=== PATIENT | male | born 1960 | race Caucasian/White ===

== ENCOUNTER 2019-02-28 10:57 | Emergency (ER) | payer OTHER, SELFPAY ==
[2019-02-28 11:01] VITALS: BP 155/95; PULSE 77; RESP 16; TEMP 36.8; O2SAT 97; BMI 37.1
--- NOTE | 2019-02-28 11:20 | ED.VISSUMM ---
- ER Visit Summary Date of Service: 02/28/19 Chief Complaint: Fell about 5 feet at work with a right knee injury History of Present Illness: The patient is a 59 M past medical history of ADD and depression. No prior extremity surgeries. 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 Now he is unable to extend his right lower leg. Denies hitting his head. Denies any LOC. Denies any neck, back, chest or abdominal pain. Denies other injuries. Physical Examination: Middle-aged male no acute distress vital signs stable afebrile. HEENT exam unremarkable atraumatic. C-spine nontender. Trachea midline. Lungs clear to auscultation bilaterally. Heart regular rhythm no murmur. Chest wall nontender. Abdomen soft nontender. Pelvic girdle intact. Extremities moving all 4. Neurovascular intact. He is an obvious deficit above his right patella consistent with a quadriceps patellar tendon rupture. Skin is intact. There is no gross bony deformity. His right hip ankle and foot are nontender neurovascular intact. He has normal DP pulse in the right foot. Normal dorsi and plantar flexion. Normal touch sensation. He is unable to extend his right knee consistent with quadriceps patellar tendon rupture. Left leg is unremarkable nontender with normal range of motion. Both upper extremities are nontender normal range of motion. Back exam nontender. Neurologically is awake and alert with no focal motor deficits besides his right knee. Test Results: Right knee x-ray shows a patella fracture with the proximal third patella retracted superiorly. Emergency Department Course and Treatment: Clinically patient has a quadriceps patellar tendon rupture or a fractured patella.. Treatment Plan: Follow-up with orthopedics as soon as possible. She will be placed in a knee immobilizer. I did speak to Dr. Lalo Augustin of orthopedics who will see him in follow-up. Crutches as needed. Fowler for pain. Off work. Disposition: Discharge Impression: Acute fall at work Worker's Comp. injury. Acute right knee patella fracture This note was generated with [employer] dictation software. It may contain incorrect words, spelling, and punctuation that were not noted in review of the chart prior to signing ED Disposition - Plan for ED Patient: Referrals: Chris,Lady, [facility] [employer] [Primary Care Provider] -
--- NOTE | 2019-02-28 11:46 | RAD_ITS ---
STUDY: X-RAY - RIGHT KNEE REASON FOR EXAM: Male, 59 years old. Trauma TECHNIQUE: 3 view(s) of the knee. COMPARISON: None. FINDINGS: Acute avulsion fracture of the superior pole of the patella with retraction of the quadriceps tendon and patellar fracture fragment superiorly. The remainder of the visualized osseous structures are intact. There is moderate soft tissue swelling around the fracture site. IMPRESSION: Acute displaced avulsion fracture of the patella as above. Electronically Signed: Eladio Haro, at 12:25 EDT Tel , Service support , RAD/Knee 4 or More Views
--- NOTE | 2019-02-28 12:38 | ED.DEP ---
ED Disposition - Plan for ED Patient: Disposition: Home or Assisted Living Instructions: Patella Fracture Prescriptions: Hydrocodone Bitart/Apap 5-325 [[place] 5MG-325MG] 1 - 2 tab PO Q4H PRN PRN 5 Days #20 tab PRN Reason: Pain Prescription Printed Referrals: Lalo Augustin MD [STAFF PHYSICIAN] - As soon as possible Additional Instructions: Ice and elevate right leg. Tylenol and/or Motrin for pain. [place] for more severe pain. Knee immobilizer anytime you are up and walking. You may use crutches or walk if you feel comfortable doing so. Call follow-up with Dr. Lalo Augustin of orthopedics she will need to surgically repaired. Off work for 1 week.
[2019-02-28 13:16] VITALS: PULSE 80; RESP 14; O2SAT 99
== END 2019-02-28 13:17 | disposition home or self-care (01) ==
PROVIDERS: Emergency Provider Emergency Medicine; Family Provider Nurse Practitioner Family; PCP Nurse Practitioner Family
DX: S82.001A Unspecified fracture of right patella, initial encounter for closed fracture (principal); F32.9 Major depressive disorder, single episode, unspecified; F90.9 Attention-deficit hyperactivity disorder, unspecified type; Z79.899 Other long term (current) drug therapy; W01.0XXA Fall on same level from slipping, tripping and stumbling without subsequent striking against object, initial encounter; Y93.01 Activity, walking, marching and hiking; Y92.89 Other specified places as the place of occurrence of the external cause; Y99.0 Civilian activity done for income or pay
CPT/HCPCS: 73564; 99285